=== PATIENT | male | born 1965 | race Two or more races ===

== ENCOUNTER 2024-04-26 12:16 | Emergency (ER) | payer MEDICAID ==
[~2024-04-26] VITALS: Ht 175.3 cm; Wt 73.6 kg
[2024-04-26] MEDS ORDERED: METH-812 PO (19:14)
[2024-04-26] MEDS ORDERED: ACET-66 PO (19:14)
[2024-04-26] MEDS ORDERED: IBUP-1554 PO (19:14)
[2024-04-26 19:39] VITALS: BP 149/103; PULSE 75; RESP 16; TEMP 98.3
== END 2024-04-26 19:39 | disposition home or self-care (01) ==
LOC: EMS 12:16
DX: S13.4XXA Sprain of ligaments of cervical spine, initial encounter (principal); S39.012A Strain of muscle, fascia and tendon of lower back, initial encounter; S20.219A Contusion of unspecified front wall of thorax, initial encounter; V49.88XA Car occupant (driver) (passenger) injured in other specified transport accidents, initial encounter; Y93.89 Activity, other specified; Y92.89 Other specified places as the place of occurrence of the external cause; Y99.8 Other external cause status
CPT/HCPCS: 72040; 72070; 72100; 93005; 99284; Z7502